=== PATIENT | male | born 1945 | race African-American/Black ===

== ENCOUNTER 2019-03-31 02:00 | Emergency (ER) | payer MEDICARE, OTHER ==
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
[~2019-03-31 02:00] MED LIST: DIPH,PERTUSS(ACELL),TET VAC/PF 0.5 ML DISP.SYRIN IM ONE; FLUORESCEIN SODIUM 1 STRIP TEST ONE; POLYMYXIN B SULF/TRIMETHOPRIM OPHTH 15 ML OU ONE; PROPARACAINE HCL 0.5% OPTH 15 ML BOTTLE OU ONE; TETRACAINE 0.5% OPTH 5 ML BOTTLE OS ONE
[2019-03-31 02:09] VITALS: BP 146/68
== END 2019-03-31 02:06 | disposition home or self-care (01) ==
LOC: ED 02:00
DX: T15.91XA Foreign body on external eye, part unspecified, right eye, initial encounter (principal); T15.92XA Foreign body on external eye, part unspecified, left eye, initial encounter
CPT/HCPCS: 90715; 99282